=== PATIENT | female | born 1965 | race Two or more races ===

== ENCOUNTER 2019-12-12 12:38 | Outpatient (CLI) | payer OTHER | END 2019-12-12 12:48 | disposition home or self-care (01) | LOC: RAD 12:38 | PROVIDERS: ATTEND Orthopaedic Surgery | DX: R07.89 Other chest pain (principal) ==

== ENCOUNTER 2019-12-15 08:14 | Outpatient (CLI) | payer OTHER | END 2019-12-15 15:00 | disposition home or self-care (01) | LOC: EKG 08:14 | PROVIDERS: ATTEND Orthopaedic Surgery | DX: I10 Essential (primary) hypertension (principal) ==

== ENCOUNTER 2023-06-27 12:42 | Emergency (ER) | payer OTHER ==
[~2023-06-27] VITALS: Ht 160 cm; Wt 59.0 kg
[2023-06-27 17:42] LABS: HEMATOCRIT 39.1 % (36.0-45.00); HEMOGLOBIN 13.5 g/dL (12.0-15.00); MEAN CELL VOLUME 88.3 fL (80.00-100.00); MEAN CORPUSCULAR HEMOGLOBIN 30.5 pg (27.00-32.0); MEAN CORPUSCULAR HGB CONC 34.5 g/dl (32.0-36.0); PLATELET COUNT 209 K/uL (150-450); RED BLOOD COUNT 4.43 M/uL (4.00-6.00); RED CELL DISTRIBUTION WIDTH 12.9 % (11.5-14.5)
[2023-06-27 18:08] LABS: ALBUMIN 3.7 gm/dL (3.4-5.0); BILIRUBIN TOTAL 0.5 mg/dL (0.3-1.2); CALCIUM 9.1 mg/dL (8.5-10.1); CREATININE SERUM 0.82 mg/dL (0.55-1.02); GFR 71.85; GLOBULINA 3.3 G/DL (2.4-3.5); POTASSIUM 3.6 mEq/L (3.5-5.1)
== END 2023-06-27 20:44 | disposition home or self-care (01) ==
LOC: ER 12:42
PROVIDERS: General Practice
DX: B34.8 Other viral infections of unspecified site (principal); Z20.822 Contact with and (suspected) exposure to COVID-19

== ENCOUNTER 2025-04-24 10:13 | Outpatient (CLI) | payer OTHER | END 2025-04-24 10:14 | disposition home or self-care (01) | LOC: NUCLEAR 10:13 | PROVIDERS: ATTEND Internal Medicine Cardiovascular Disease | DX: M81.0 Age-related osteoporosis without current pathological fracture (principal) ==

== ENCOUNTER 2025-04-29 09:00 | Inpatient (IN) | payer OTHER ==
[~2025-04-29] VITALS: Ht 152.4 cm; Wt 68.0 kg
[2025-04-29] MEDS ORDERED: GLYXAMBI 25 MG1 EACH PO (10:54)
[2025-04-29] MEDS ORDERED: GLIPIZIDE XL5 MG PO (10:54)
[2025-04-29 11:00] VITALS: BP 104/67
[2025-04-29 11:44] LABS: URINE APPEARANCE Clear; URINE BILIRRUBIN Negative (NEGATIVE); URINE BLOOD Negative; URINE COLOR Yellow; URINE KETONE 15 (NEGATIVE); URINE LEUKOCYTE Negative; URINE NITRATE Negative; URINE PROTEIN Negative (NEGATIVE); URINE UROBILINOGEN 0.2 E.U./dl
[2025-04-29 11:46] LABS: URINE BACTERIA 8.3 uL (0.0-1933); URINE EPITHELIAL CELLS 6.4 uL (0.0-38.8); URINE WBC 10.9 uL (0.0-23.2)
[2025-04-29 11:47] LABS: URINE CAST 0.00 uL (0.0-1.40); URINE GLUCOSE >=1000 MG/DL (NEGATIVE); URINE RBC 0.7 uL (0.0-20.8)
[2025-04-29 11:47] LABS: BASO % 0.5 % (0.1-1.2); EOS # 0.05 (0.04-0.54); EOS % 0.6 % (0.7-7.0); LYMPH # 1.54 (1.18-3.74); LYMPH % 19.2 % (19.3-53.1); MEAN PLATELET VOLUME 9.40 fl (9.4-12.4); MONO # 0.74 (0.24-0.82); MONO % 9.2 % (4.7-12.5); NEUT # 5.63 (1.56-6.13); NEUT % 70.1 % (34.0-71.1); RED CELL DISTRIBUTION WIDTH 11.8 % (11.6-14.4)
[2025-04-29 12:11] LABS: INR 1.02
[2025-04-29 12:35] LABS: ALT/SGPT 23.0 U/L (12-78); AST/SGOT 15.0 U/L (15-37); BILIRUBIN TOTAL 0.6 mg/dL (0.3-1.2); BUN CREA RATIO 27.0 (7.0-25.0); CREATININE SERUM 0.66 mg/dL (0.55-1.02); GFR 91.66; GLOBULINA 3.5 G/DL (2.4-3.5); GLUCOSE FASTING 128.0 mg/dL (65-100); OSMOLALITY SERUM 283.0 MOSM/KG (275-295)
[2025-05-05] MEDS ORDERED: CEFAZOLIN SODIUM 1,000 MG VIAL ONE ×2 (10:20→12:35)
[2025-05-05] MEDS ORDERED: TRANEXAMIC ACID 100MG/1ML (1000MG) AMPUL ONE (10:20)
[2025-05-05] MEDS ORDERED: BUPIVACAINE HCL/Mpf 0.5% 10ML VIAL ONE (10:24)
[2025-05-05] MEDS ORDERED: LIDOCAINE HCL 1%/EPINEPHRINE 20ML VIAL IJ ONE (10:24)
[2025-05-05] MEDS ORDERED: VANCOMYCIN HCL 1,000 MG VIAL ONE (10:24)
[2025-05-05] MEDS ORDERED: KETOROLAC TROMETHAMINE 60 MG VIAL IM ONE (10:26)
[2025-05-05] MEDS ORDERED: ONDANSETRON HCL 2 MG/ML VIAL IV PRN (10:30)
[2025-05-05] MEDS ORDERED: OxyCODONE HCL 5 MG TABLET (ROXICODONE) PO PRN (12:00)
[2025-05-05] MEDS ORDERED: CEFAZOLIN SODIUM 1,000 MG VIAL IV SCH (12:00)
[2025-05-05] MEDS ORDERED: MORPHINE SULFATE 4 MG/ML VIAL IV SCH (12:00)
[2025-05-05] MEDS ORDERED: DEXTROSE 50 % IN WATER 0.5 G/ML DISP.SYRIN IV PRN (16:00)
[2025-05-05] MEDS ORDERED: INSULIN LISPRO 1,000 UNIT/10 ML UNITS SUBCUTANEO PRN (16:00)
[2025-05-05] MEDS ORDERED: ORPHENADRINE CITRATE 100 MG TABLET PO SCH (21:00)
[2025-05-05] MEDS ORDERED: GABAPENTIN 100 MG CAPSULE PO SCH (21:00)
[2025-05-05 21:53] VITALS: BP 119/68
[2025-05-06 01:15] VITALS: BP 106/56
[2025-05-06 02:32] LABS: BASO % 0.3 % (0.1-1.2); EOS # 0.01 (0.04-0.54); EOS % 0.1 % (0.7-7.0); LYMPH # 0.94 (1.18-3.74); LYMPH % 8.8 % (19.3-53.1); MEAN PLATELET VOLUME 9.70 fl (9.4-12.4); MONO # 0.93 (0.24-0.82); MONO % 8.7 % (4.7-12.5); NEUT # 8.80 (1.56-6.13); NEUT % 81.9 % (34.0-71.1); RED CELL DISTRIBUTION WIDTH 11.9 % (11.6-14.4)
[2025-05-06 08:00] VITALS: BP 106/60
[2025-05-06] MEDS ORDERED: SOD FERRIC GLUC COMPLX/SUCROSE 62.5 MG in 0.9 % SODIUM CHLORIDE 50 ML IV SCH (09:00)
[2025-05-06 16:26] VITALS: BP 111/55
[2025-05-06] MEDS ORDERED: RIVAROXABAN 10 MG TAB PO SCH (17:00)
[2025-05-06 19:05] LABS: COVID-19 AG NEGATIVE (NEGATIVE)
[2025-05-06 19:42] LABS: ALT/SGPT 18.0 U/L (12-78); AST/SGOT 18.0 U/L (15-37); BILIRUBIN TOTAL 0.57 mg/dL (0.3-1.2); BUN CREA RATIO 19.0 (7.0-25.0); CREATININE SERUM 0.77 mg/dL (0.55-1.02); GFR 76.73; GLOBULINA 3.0 G/DL (2.4-3.5); OSMOLALITY SERUM 281.0 MOSM/KG (275-295)
[2025-05-06 19:55] LABS: GLUCOSE FASTING 219.0 mg/dL (65-100)
[2025-05-07] VITALS: BP 101/56
[2025-05-07 01:07] LABS: BASO % 0.2 % (0.1-1.2); EOS # 0.01 (0.04-0.54); EOS % 0.1 % (0.7-7.0); LYMPH # 1.21 (1.18-3.74); LYMPH % 10.0 % (19.3-53.1); MEAN PLATELET VOLUME 10.00 fl (9.4-12.4); MONO # 1.54 (0.24-0.82); NEUT # 9.29 (1.56-6.13); NEUT % 76.5 % (34.0-71.1); RED CELL DISTRIBUTION WIDTH 11.8 % (11.6-14.4)
[2025-05-07 01:08] LABS: MONO % 12.7 % (4.7-12.5)
[2025-05-07 08:00] VITALS: BP 132/71
[2025-05-07] MEDS ORDERED: XARELTO10 MG PO (10:50)
[2025-05-07] MEDS ORDERED: NORFLEX100MG PO (10:50)
[2025-05-07] MEDS ORDERED: GABAPENTIN100 MG PO (10:52)
[2025-05-07] MEDS ORDERED: PERCOCET 5-3251 EACH PO (10:54)
[2025-05-07 16:55] VITALS: BP 121/57
== END 2025-05-07 20:10 | DRG 470 ==
LOC: OB/GYN 05-05 07:00 → O/R 05-05 07:00 → SURH 05-05 09:00 → OB/GYN 05-05 13:56
PROVIDERS: ADMIT Orthopaedic Surgery; ATTEND Orthopaedic Surgery
PROC: 0QUD0JZ Supplement Right Patella with Synthetic Substitute, Open Approach (ICD-10-PCS; 2025-05-05)
PROC: 0SRC0JZ Replacement of Right Knee Joint with Synthetic Substitute, Open Approach (ICD-10-PCS; principal; 2025-05-05 12:30)
DX: M17.11 Unilateral primary osteoarthritis, right knee (principal); M85.661 Other cyst of bone, right lower leg; B34.9 Viral infection, unspecified; Z96.651 Presence of right artificial knee joint